=== PATIENT | male | born 2000 | race Caucasian/White ===

== ENCOUNTER 2020-03-04 13:48 | Inpatient (IN) ==
[2020-03-04] MEDS ORDERED: 0.9 % Sodium Chloride 500 ML IVC ONE (14:09)
[2020-03-04] MEDS ORDERED: *HR* FentaNYL (PF) 100 MCG/2 ML VIAL IVP STA (14:20)
[2020-03-04] MEDS ORDERED: Ondansetron 4 MG/2 ML VIAL IVP ONE ×2 (14:20→22:06)
[2020-03-04] MEDS ORDERED: Piperacillin/Tazobactam 3.375 GM in 0.9 % Sodium Chloride Mini Bag 100 ML IVPB ONE (14:51)
[2020-03-04 14:52] LABS: Basophils % 0.1 %; Eosinophils # 0.1 K/mcL (0.0-0.6); Eosinophils % 0.8 %; Hematocrit 32.1 % (37.5-50.1); Hemoglobin 10.3 g/dL (12.9-16.9); Immature Granulocytes % 0.2 % (0-4); Lymphocytes # 1.3 K/mcL (0.6-4.6); Lymphocytes % 14.3 %; Mean Corpuscular HGB Conc 32.1 g/dL (31.6-35.5); Mean Corpuscular Hemoglobin 31.5 pg (28.0-33.3); Mean Corpuscular Volume 98.2 fL (83.0-100.0); Mean Platelet Volume 10.4 fL (9.4-12.4); Monocytes # 0.4 K/mcL (0.0-1.3); Monocytes % 4.6 %; Platelet Count 201 K/mcL (140-400); Red Blood Count 3.27 M/mcL (4.19-5.50); Red Cell Distribution Width 12.5 % (11.5-14.5); White Blood Count 8.8 K/mcL (4.3-11.1)
[2020-03-04 15:06] LABS: Alanine Aminotransferase 11 Units/L (7-52); Albumin 3.8 g/dL (3.5-5.7); Albumin/Globulin Ratio 1.3 (1.1-2.2); Alkaline Phosphatase 82 Units/L (34-104); Aspartate Amino Transferase 13 Units/L (13-39); BUN/Creatinine Ratio 4 (6-26); Bilirubin,Direct 0.1 mg/dL (0.0-0.2); Bilirubin,Indirect 0.3 mg/dL (0.0-1.0); Bilirubin,Total 0.4 mg/dL (0.3-1.0); Blood Urea Nitrogen 27 mg/dL (6-20); Calcium 9.5 mg/dL (8.6-10.3); Carbon Dioxide 28 mEq/L (23-29); Chloride 102 mEq/L (98-107); Glucose 98 mg/dL (70-105); Osmolality,Calculated 293 (280-300); Potassium 3.8 mEq/L (3.5-5.1); Sodium 139 mEq/L (136-145); Total Protein 6.8 g/dL (6.4-8.9); Troponin I < 0.03 ng/mL (< 0.04); eGFR For African Americans 13 (> 60); eGFR For Non-African Americans 11 (> 60)
[2020-03-04] MEDS ORDERED: *HR* HYDROmorphone (PF) 1 MG/ML SYRINGE IVP STA (15:08)
[2020-03-04 15:38] LABS: Bilirubin,Urine Negative (Negative); Blood,Urine Negative (Negative); Clarity,Urine Clear (Clear); Color,Urine Light-Yellow (Yellow); Glucose,Urine (UA) Normal (Normal); Ketones,Urine Negative (Negative); Leukocyte Esterase,Urine Negative (Negative); Nitrite,Urine Negative (Negative); PH,Urine 8.5 pH Units (5.0-8.0); Protein,Urine 100 mg/dL (Neg-Trace); RBC,Urine 0-3 per hpf (0-3); Specific Gravity,Urine 1.012 (1.010-1.025); Squamous Epithelial Cell,Urine Few per hpf (None-Few); Urobilinogen,Urine Normal (Normal); WBC,Urine 0-3 per hpf (0-3)
[2020-03-04 17:26] LABS: RBC,Peritoneal Fluid < 2000 RBC/mcL
[2020-03-04 17:48] LABS: Appearance of Peritoneal Fl HAZY (Clear)
[2020-03-04] MEDS ORDERED: Perit. Dialysis with Dex 2.5 % 12,000 ML PERITONEAL ONE (19:00)
[2020-03-04] MEDS ORDERED: Acetaminophen 325 MG TABLET PO PRN (19:20)
[2020-03-04] MEDS ORDERED: *HR* OxyCODONE Immed Rel 5 MG TABLET PO PRN (19:24)
[2020-03-04] MEDS ORDERED: Naloxone 0.4 MG/ML INJ IVP PRN (19:24)
[2020-03-04 20:00] LABS: Hepatitis B Surface Antibody 28.54 mIU/mL
[2020-03-04] MEDS ORDERED: Perit. Dialysis with Dex 2.5 % 2,000 ML PERITONEAL ONE ×2 (20:00→20:25)
[2020-03-04 20:12] LABS: Hepatitis B Surface Antigen Nonreactive (Nonreactive)
[2020-03-04 20:14] LABS: INR 1.1; Prothrombin Time 12.4 Seconds (9.4-12.1)
[2020-03-04 20:17] LABS: Activated Partial Thrombo Time 34.6 Seconds (26.0-36.0)
[2020-03-04 20:29] LABS: Calcium 8.9 mg/dL (8.6-10.3); Potassium 3.8 mEq/L (3.5-5.1)
[2020-03-04] MEDS ORDERED: Acetaminophen IV 1,000 MG/100 ML INFUS..BTL IVPB ONE (23:54)
[2020-03-04] MEDS ORDERED: Melatonin 3 MG TABLET PO ONE (23:59)
[2020-03-05] MEDS: Piperacillin/Tazobactam 3.375 GM in 0.9 % Sodium Chloride Mini Bag 100 ML IVPB SCH ×2 (03:42→15:10)
[2020-03-05 07:28] LABS: Basophils % 0.3 %; Eosinophils # 0.1 K/mcL (0.0-0.6); Eosinophils % 2.3 %; Hematocrit 26.8 % (37.5-50.1); Immature Granulocytes % 0.5 % (0-4); Lymphocytes # 1.4 K/mcL (0.6-4.6); Lymphocytes % 24.7 %; Mean Corpuscular HGB Conc 32.1 g/dL (31.6-35.5); Mean Corpuscular Hemoglobin 30.9 pg (28.0-33.3); Mean Corpuscular Volume 96.4 fL (83.0-100.0); Mean Platelet Volume 10.2 fL (9.4-12.4); Monocytes # 0.5 K/mcL (0.0-1.3); Monocytes % 8.2 %; Neutrophils # 3.7 K/mcL (1.6-8.9); Platelet Count 154 K/mcL (140-400); Red Blood Count 2.78 M/mcL (4.19-5.50); Red Cell Distribution Width 12.5 % (11.5-14.5); White Blood Count 5.7 K/mcL (4.3-11.1)
[2020-03-05 07:41] LABS: Hemoglobin 8.6 g/dL (12.9-16.9)
[2020-03-05 07:44] LABS: Calcium 8.8 mg/dL (8.6-10.3); Potassium 3.8 mEq/L (3.5-5.1)
[2020-03-05 07:47] LABS: Albumin 3.2 g/dL (3.5-5.7); Phosphorous 4.3 mg/dL (2.7-4.5)
[2020-03-05] MEDS: Gentamicin Oint 15 GM TUBE TP SCH ×2 (09:00→20:10)
[2020-03-05] MEDS ORDERED: Ondansetron ODT 4 MG TAB.RAPDIS SL PRN (09:12)
[2020-03-05 10:19] LABS: Hematocrit 27.1 % (37.5-50.1); Hemoglobin 8.7 g/dL (12.9-16.9)
[2020-03-05] MEDS: *HR* HYDROcodone/Acet 5/325 mg TABLET PO PRN ×2 (10:22→20:37)
[2020-03-05] MEDS ORDERED: NON-FORMULARY MEDICATION 1 EACH EACH (Ondansetron Hcl [Zofran] 4 MG) PO PRN (11:47)
[2020-03-05] MEDS ORDERED: Gentamicin Oint 15 GM TUBE TP SCH (12:00)
[2020-03-05] MEDS: Renal Vitamin 1 CAP CAPSULE PO SCH (12:17)
[2020-03-05] MEDS: Cholecalciferol (D-3) 1,000 UNIT (25MCG) TABLET PO SCH (12:17)
[2020-03-05] MEDS: Hydrocortisone 10 MG TABLET PO SCH ×2 (15:09→20:38)
[2020-03-05] MEDS ORDERED: Perit. Dialysis with Dex 2.5 % 12,000 ML PERITONEAL ONE (19:00)
[2020-03-05] MEDS ORDERED: Perit. Dialysis with Dex 2.5 % 2,000 ML PERITONEAL ONE ×2 (19:00)
[2020-03-05] MEDS ORDERED: PERIT DIALYSIS WITH DEX 2.5% PERITONEAL ONE ×2 (19:00)
[2020-03-05] MEDS: Melatonin 3 MG TABLET PO SCH (20:36)
[2020-03-05] MEDS: Cyprohepatdine 4 MG TABLET PO SCH (20:37)
[2020-03-05] MEDS: (Saccharomyces Boulardii [Florastor] 250 MG) PO SCH (22:38)
[2020-03-06 03:09] LABS: Basophils % 0.2 %; Eosinophils % 0.3 %; Hematocrit 27.4 % (37.5-50.1); Hemoglobin 8.8 g/dL (12.9-16.9); Immature Granulocytes % 0.3 % (0-4); Lymphocytes # 0.7 K/mcL (0.6-4.6); Lymphocytes % 12.6 %; Mean Corpuscular HGB Conc 32.1 g/dL (31.6-35.5); Mean Corpuscular Hemoglobin 31.3 pg (28.0-33.3); Mean Corpuscular Volume 97.5 fL (83.0-100.0); Mean Platelet Volume 11.1 fL (9.4-12.4); Monocytes # 0.3 K/mcL (0.0-1.3); Monocytes % 4.8 %; Neutrophils # 4.8 K/mcL (1.6-8.9); Platelet Count 198 K/mcL (140-400); Red Blood Count 2.81 M/mcL (4.19-5.50); Red Cell Distribution Width 12.6 % (11.5-14.5); Segmented Neutrophils % 81.8 %; White Blood Count 5.9 K/mcL (4.3-11.1)
[2020-03-06] MEDS: Piperacillin/Tazobactam 3.375 GM in 0.9 % Sodium Chloride Mini Bag 100 ML IVPB SCH ×2 (03:12→14:26)
[2020-03-06 03:28] LABS: Calcium 8.8 mg/dL (8.6-10.3); Potassium 4.3 mEq/L (3.5-5.1)
[2020-03-06] MEDS: Hydrocortisone 10 MG TABLET PO SCH ×3 (09:00→20:15)
[2020-03-06] MEDS: Cholecalciferol (D-3) 1,000 UNIT (25MCG) TABLET PO SCH (09:00)
[2020-03-06] MEDS: Renal Vitamin 1 CAP CAPSULE PO SCH (09:01)
[2020-03-06] MEDS: Cyprohepatdine 4 MG TABLET PO SCH ×2 (09:01→20:15)
[2020-03-06] MEDS: Gentamicin Oint 15 GM TUBE TP SCH ×2 (09:04→20:15)
[2020-03-06] MEDS: (Saccharomyces Boulardii [Florastor] 250 MG) PO SCH ×2 (09:06→20:15)
[2020-03-06] MEDS: polyethylene glycoL 3350 17 GM POWD.PACK PO SCH (17:41)
[2020-03-06] MEDS ORDERED: Perit. Dialysis with Dex 2.5 % 2,000 ML PERITONEAL ONE (19:00)
[2020-03-06] MEDS ORDERED: Perit. Dialysis with Dex 2.5 % 12,000 ML PERITONEAL ONE (19:00)
[2020-03-06] MEDS: Melatonin 3 MG TABLET PO SCH (23:12)
[2020-03-07] MEDS: Piperacillin/Tazobactam 3.375 GM in 0.9 % Sodium Chloride Mini Bag 100 ML IVPB SCH (03:24)
[2020-03-07 03:36] LABS: Eosinophils % 0.4 %; Hemoglobin 8.8 g/dL (12.9-16.9)
[2020-03-07 03:38] LABS: Basophils % 0.1 %; Hematocrit 27.7 % (37.5-50.1); Immature Granulocytes % 0.3 % (0-4); Immature Platelets 9.7 % (1.1-6.1); Lymphocytes # 1.1 K/mcL (0.6-4.6); Lymphocytes % 14.1 %; Mean Corpuscular HGB Conc 31.8 g/dL (31.6-35.5); Mean Corpuscular Hemoglobin 31.9 pg (28.0-33.3); Mean Corpuscular Volume 100.4 fL (83.0-100.0); Mean Platelet Volume 12.3 fL (9.4-12.4); Monocytes # 0.4 K/mcL (0.0-1.3); Monocytes % 5.5 %; Platelet Count 166 K/mcL (140-400); Red Blood Count 2.76 M/mcL (4.19-5.50); Red Cell Distribution Width 12.7 % (11.5-14.5); Segmented Neutrophils % 79.6 %; White Blood Count 7.5 K/mcL (4.3-11.1)
[2020-03-07 03:54] LABS: Calcium 8.7 mg/dL (8.6-10.3)
[2020-03-07] MEDS: polyethylene glycoL 3350 17 GM POWD.PACK PO SCH (09:00)
[2020-03-07] MEDS: Hydrocortisone 10 MG TABLET PO SCH ×3 (09:01→22:36)
[2020-03-07] MEDS: Cholecalciferol (D-3) 1,000 UNIT (25MCG) TABLET PO SCH (09:01)
[2020-03-07] MEDS: Cyprohepatdine 4 MG TABLET PO SCH ×2 (09:02→22:36)
[2020-03-07] MEDS: Gentamicin Oint 15 GM TUBE TP SCH ×2 (09:02→22:36)
[2020-03-07] MEDS: Renal Vitamin 1 CAP CAPSULE PO SCH (09:02)
[2020-03-07] MEDS: (Saccharomyces Boulardii [Florastor] 250 MG) PO SCH ×2 (09:03→22:36)
[2020-03-07] MEDS: *HR* Heparin 5,000 UNIT/ML VIAL SQ SCH (17:52)
[2020-03-07] MEDS ORDERED: Perit. Dialysis with Dex 2.5 % 2,000 ML PERITONEAL ONE (19:00)
[2020-03-07] MEDS ORDERED: Perit. Dialysis with Dex 2.5 % 12,000 ML PERITONEAL ONE (19:25)
[2020-03-07] MEDS: Melatonin 3 MG TABLET PO SCH (22:36)
[2020-03-08] MEDS: *HR* Heparin 5,000 UNIT/ML VIAL SQ SCH (05:23)
[2020-03-08 07:11] LABS: Basophils % 0.2 %; Eosinophils % 0.3 %; Hematocrit 29.8 % (37.5-50.1); Hemoglobin 9.3 g/dL (12.9-16.9); Immature Granulocytes % 0.3 % (0-4); Lymphocytes # 1.5 K/mcL (0.6-4.6); Lymphocytes % 22.6 %; Mean Corpuscular HGB Conc 31.2 g/dL (31.6-35.5); Mean Corpuscular Hemoglobin 30.9 pg (28.0-33.3); Mean Platelet Volume 10.5 fL (9.4-12.4); Monocytes # 0.4 K/mcL (0.0-1.3); Monocytes % 6.7 %; Neutrophils # 4.6 K/mcL (1.6-8.9); Platelet Count 227 K/mcL (140-400); Red Blood Count 3.01 M/mcL (4.19-5.50); Red Cell Distribution Width 12.5 % (11.5-14.5); Segmented Neutrophils % 69.9 %; White Blood Count 6.6 K/mcL (4.3-11.1)
[2020-03-08 07:34] LABS: Calcium 8.9 mg/dL (8.6-10.3); Potassium 3.6 mEq/L (3.5-5.1)
[2020-03-08] MEDS: Renal Vitamin 1 CAP CAPSULE PO SCH (08:47)
[2020-03-08] MEDS: Hydrocortisone 10 MG TABLET PO SCH (08:47)
[2020-03-08] MEDS: Cholecalciferol (D-3) 1,000 UNIT (25MCG) TABLET PO SCH (08:47)
[2020-03-08] MEDS: Cyprohepatdine 4 MG TABLET PO SCH (08:47)
[2020-03-08] MEDS: (Saccharomyces Boulardii [Florastor] 250 MG) PO SCH (08:48)
[2020-03-08] MEDS: Gentamicin Oint 15 GM TUBE TP SCH (08:48)
[2020-03-08] MEDS: polyethylene glycoL 3350 17 GM POWD.PACK PO SCH (08:48)
[2020-03-08 11:41] VITALS: BP 108/68
== END 2020-03-08 16:28 | disposition home or self-care (01) | DRG 466 ==
LOC: UNDODISOB → EMEROOARM 13:48 → 3BNU 13:48 → 2ANU 13:48 → SUATTDRO 17:54 → 2ANU 18:30
PROVIDERS: ADMIT Internal Medicine; ATTEND Internal Medicine

== ENCOUNTER 2020-04-10 09:15 | Observation (INO) ==
[2020-04-10 10:02] LABS: Basophils % 0.4 %; Eosinophils # 0.1 K/mcL (0.0-0.6); Eosinophils % 2.7 %; Hematocrit 18.9 % (37.5-50.1); Hemoglobin 6.1 g/dL (12.9-16.9); Immature Granulocytes % 0.6 % (0-4); Lymphocytes # 1.7 K/mcL (0.6-4.6); Lymphocytes % 33.9 %; Mean Corpuscular HGB Conc 32.3 g/dL (31.6-35.5); Mean Corpuscular Volume 95.9 fL (83.0-100.0); Monocytes # 0.4 K/mcL (0.0-1.3); Monocytes % 8.2 %; Neutrophils # 2.7 K/mcL (1.6-8.9); Platelet Count 236 K/mcL (140-400); Red Blood Count 1.97 M/mcL (4.19-5.50); Red Cell Distribution Width 12.7 % (11.5-14.5); Segmented Neutrophils % 54.2 %; White Blood Count 4.9 K/mcL (4.3-11.1)
[2020-04-10 10:21] LABS: Calcium 9.3 mg/dL (8.6-10.3); Potassium 3.4 mEq/L (3.5-5.1)
[2020-04-10] MEDS ORDERED: 0.9 % Sodium Chloride 250 ML ONE ×2 (11:50→15:19)
[2020-04-10] MEDS ORDERED: 0.9 % Sodium Chloride 250 ML IVC PRN (12:02)
[2020-04-10] MEDS ORDERED: Naloxone 0.4 MG/ML INJ IVP PRN (12:14)
[2020-04-10] MEDS ORDERED: Ondansetron 4 MG/2 ML VIAL IVP PRN (12:14)
[2020-04-10] MEDS ORDERED: Acetaminophen 325 MG TABLET PO PRN (12:14)
[2020-04-10] MEDS ORDERED: 0.9 % Sodium Chloride 1,000 ML PRIME SCH (12:15)
[2020-04-10] MEDS ORDERED: *HR* Heparin 10,000 UNIT/10 ML VIAL IV PRN (16:33)
[2020-04-10] MEDS ORDERED: Melatonin 3 MG TABLET PO PRN (16:44)
[2020-04-10 17:47] LABS: Hematocrit 22.8 % (37.5-50.1)
[2020-04-10 17:48] LABS: Hemoglobin 7.7 g/dL (12.9-16.9)
[2020-04-10] MEDS: Gentamicin Oint 15 GM TUBE TP SCH (18:19)
[2020-04-10] MEDS: Lactobacillus 1 EACH CAP.SPRINK PO SCH (20:04)
[2020-04-10] MEDS: Cyprohepatdine 4 MG TABLET PO SCH (20:04)
[2020-04-11 06:10] LABS: Basophils % 0.7 %; Eosinophils # 0.1 K/mcL (0.0-0.6); Eosinophils % 2.6 %; Hematocrit 23.3 % (37.5-50.1); Hemoglobin 7.8 g/dL (12.9-16.9); Immature Granulocytes % 0.7 % (0-4); Immature Reticulocyte % 15.4 % (11.0-38.0); Lymphocytes # 1.3 K/mcL (0.6-4.6); Lymphocytes % 28.6 %; Mean Corpuscular HGB Conc 33.5 g/dL (31.6-35.5); Mean Corpuscular Hemoglobin 31.7 pg (28.0-33.3); Mean Corpuscular Volume 94.7 fL (83.0-100.0); Mean Platelet Volume 10.2 fL (9.4-12.4); Monocytes # 0.5 K/mcL (0.0-1.3); Monocytes % 10.4 %; Neutrophils # 2.6 K/mcL (1.6-8.9); Platelet Count 205 K/mcL (140-400); Red Blood Count 2.46 M/mcL (4.19-5.50); Red Cell Distribution Width 13.1 % (11.5-14.5); Retculocyte # 0.03 M/mcL (0.05-0.10); Reticulocyte % 1.2 % (1.6-2.8); White Blood Count 4.5 K/mcL (4.3-11.1)
[2020-04-11 06:29] LABS: Calcium 9.1 mg/dL (8.6-10.3); Magnesium 1.9 mg/dL (1.6-2.6); Phosphorous 4.6 mg/dL (2.7-4.5); Potassium 4.1 mEq/L (3.5-5.1)
[2020-04-11 06:30] LABS: % Iron Saturation 20 % (20-55); Iron 44 mcg/dL (65-175); Lactate Dehydrogenase 133 Units/L (140-271); Transferrin 160 mg/dL (203-362)
[2020-04-11 06:47] LABS: Ferritin 232 ng/mL (20-250)
[2020-04-11 07:32] VITALS: BP 121/76
[2020-04-11] MEDS: Gentamicin Oint 15 GM TUBE TP SCH (08:31)
[2020-04-11] MEDS ORDERED: Renal Vitamin 1 CAP CAPSULE PO SCH (09:00)
[2020-04-11] MEDS ORDERED: Cholecalciferol (D-3) 1,000 UNIT (25MCG) TABLET PO SCH (09:00)
[2020-04-11] MEDS ORDERED: Gentamicin Oint 15 GM TUBE TP SCH (09:00)
[2020-04-11] MEDS: Cyprohepatdine 4 MG TABLET PO SCH (09:37)
[2020-04-11] MEDS: Lactobacillus 1 EACH CAP.SPRINK PO SCH (09:38)
== END 2020-04-11 12:33 | disposition home or self-care (01) ==
LOC: EMEROOARM 09:15 → 2ANU 09:15
PROVIDERS: ADMIT Internal Medicine; ATTEND Internal Medicine